=== PATIENT | female | born 1945 | race Caucasian/White ===

== ENCOUNTER 2019-03-24 08:39 | Outpatient (RCR) | payer MEDICARE | END 2019-03-28 | LOC: M PT 08:39 | PROVIDERS: ATTEND Physician Assistant | DX: Z51.89 Encounter for other specified aftercare (principal); I61.2 Nontraumatic intracerebral hemorrhage in hemisphere, unspecified; I10 Essential (primary) hypertension; I48.91 Unspecified atrial fibrillation ==